=== PATIENT | male | born 2005 | race Two or more races ===

== ENCOUNTER 2024-06-22 13:56 | Emergency (ER) | payer MEDICAID, SELFPAY ==
--- NOTE | ~2024-06-22 | CT_ITS ---
EXAMINATION: CT ABDOMEN AND PELVIS WITH CONTRAST CLINICAL INFORMATION: Vomiting. Lower abdominal pain. Elevated WBC count. COMPARISON: None available. TECHNIQUE: Multidetector volumetric images were obtained from the superior aspect of the liver through the pubic symphysis following administration 85 mL of Omnipaque 350 intravenous contrast. Sagittal and coronal reformatted images were obtained on the technologist's workstation. Oral contrast: No This CT examination was performed using dose optimization techniques as appropriate, variously including the following: *Automated exposure control *Adjustment of mA and/or kV according to patient size (this includes techniques or standardized protocols for targeted exams where dose is matched to indication/reason for exam; i.e. extremities or head) *Use of iterative reconstruction technique DLP: 566 mGy-cm FINDINGS: LUNG BASES: The visualized lung bases are unremarkable. LIVER, GALLBLADDER, AND BILIARY TREE: The liver is normal in size, shape, and attenuation. No focal hepatic lesion or biliary ductal dilatation is present. The gallbladder is unremarkable with no evidence of radiopaque gallstones, gallbladder wall thickening, or obvious pericholecystic inflammatory changes. PANCREAS: Unremarkable. SPLEEN: Unremarkable. ADRENAL GLANDS: Unremarkable. KIDNEYS AND URETERS: The kidneys are normal in size, shape, and attenuation. No hydronephrosis, hydroureter, or calculi seen. No perinephric stranding. BLADDER: Unremarkable. GASTROINTESTINAL TRACT: The small and large bowel are unremarkable. The appendix is unremarkable. ABDOMINAL WALL: No significant hernia is appreciated. LYMPH NODES: Normal. VASCULAR: Unremarkable. PELVIC VISCERA: Unremarkable. OSSEOUS STRUCTURES: Unremarkable. CT/CT abdomen pelvis w IV con IMPRESSION: No significant abnormality. Fleischner guidelines were followed.
[2024-06-22 14:22] VITALS: BP 130/75; PULSE 98; RESP 16; TEMP 36.8; O2SAT 97; BMI 26.7
--- NOTE | 2024-06-22 14:24 | ED_ITS ---
HPI - Nausea/Vomiting/Diarrhea General Chief complaint: Nausea/Vomiting/Diarrhea Stated complaint: Nausea Vomiting Diarrhea Time Seen by Provider: 06/22/24 17:15 Source: patient Mode of arrival: ambulatory Limitations: no limitations History of Present Illness ED Provider: GALINA QUIROZ Narrative: 18 yo male with no PMH here with c/o perumbilical pain n/v/d since yesterday that is improving. He denies fevers, bloody stools, travel, antibiotic use or sick contacts. He denies food exposures. MD elicited complaint: nausea, vomiting, diarrhea and abdominal pain Onset (ago): day(s) (1) Description of vomiting: food contents and watery Associated nausea: Yes Associated abdominal pain: Yes Location of pain: periumbilical Pain consistency: other (much improved) Severity: mild Quality: cramping Exacerbating factors: eating Relieving factors: none Associated symptoms: malaise and nausea/vomiting Related Data Previous Rx's ?Medication ?Instructions ?Recorded ondansetron 4 mg disintegrating 4 mg PO Q8H PRN nausea and 06/22/24 tablet vomiting #20 tabs Allergies Allergy/AdvReac Type Severity Reaction Status Date / Time No Known Allergies Allergy Verified 06/22/24 14:26 Review of Systems 2 Review of Systems: Constitutional : No Weight loss, No Fever, No Chills ENT/Mouth : No sore throat, No Rhinorrhea Eyes: No Swelling, No Redness Cardiovascular : No Chest Pain, No SOB, NoEdema Respiratory : No Cough, No Sputum, No Wheezing Gastrointestinal : Positive Nausea, Positive Vomiting, positive Diarrhea, positive abdominal Pain, No Hematochezia, No Melena Genitourinary : No Dysuria, No Urinary Frequency, No Hematuria, No Urgency Musculoskeletal : No joint pain, No Myalgias, No Joint Swelling Skin : No Skin Lesions, No rash Neuro : No Weakness, No Numbness, No Dizziness, No Headache Psych : No Anxiety/Panic, No Depression All other systems reviewed and are negative. Gastrointestinal: Gastrointestinal: Reports nausea PMFSH Past Medical History Attestation statement: The following information was validated with the patient. Medical History No pertinent past medical history Social History Social History (Updated 06/22/24 @ 17:27 by Mildred Thibodeaux DO) Patient Tobacco Use Status: Never used Tobacco Smoked in Last 30 Days: No Use of substances other than those prescribed or required for medical reasons: No Advance Directives: No Advance Directives Information Provided: Yes Physical Exam 2 Vital Signs: Vital Signs: Last Vital Signs Temp 98.6 F 06/22/24 19:52 Pulse 85 06/22/24 19:52 Resp 17 06/22/24 19:52 BP 137/69 06/22/24 19:52 Pulse Ox 98 06/22/24 19:52 O2 Del Method Room Air 06/22/24 19:52 BMI result Body Mass Index 26.7 Appearance: Alert. Oriented X3. No acute distress. Eyes: Pupils equal, round and reactive to light. ENT: Pharynx normal. Neck: Normal inspection. Neck supple. CVS: Normal heart rate and rhythm. Pulses normal. Respiratory: No respiratory distress. Breath sounds normal. Abdomen: Soft and mild periumbilical ttp Skin: Skin warm and dry. Normal skin color. Normal skin turgor. Extremities: No lower extremity edema. Neuro: Oriented X 3. No motor deficit. No sensory deficit. Course Course Course Narrative: This is an RME: Additional HPI, ROS, PE not included below will be deferred to primary provider. RME assessment and note performed by: Shelby Denise PA-C This is a [id number]-male who presents to the ER with complaints of epigastric abdominal pain, nausea, vomiting, and diarrhea since yesterday. No sick contacts. No bloody or black stool. No appetite. No urinary symptoms. Plan: Labs, UA, further ER eval needed. [id number] - Received phone call from laboratory stating that patient has 12% bands. Advised triage nurse to get patient back margi. 1644 - Patient is still present in the waiting room, blood cultures, lactic also ordered. Reevaluation(s) Reevaluation #1: infection suspected 557pm ceftriaxone ordered Medications Administered Discontinued Medications Generic Name Dose Route Start Last Admin Trade Name Freq PRN Reason Stop Dose Admin Lactated Ringer's 1,000 mls @ 999 mls/hr 06/22/24 17:15 06/22/24 18:46 Lr IV 06/22/24 18:15 999 mls/hr .Q1H1M ONE Infusion Lactated Ringer's 1,000 mls @ 999 mls/hr 06/22/24 17:50 06/22/24 18:46 Lr IV 06/22/24 18:50 999 mls/hr .Q1H1M ONE Administration Ceftriaxone Sodium 1 gm/ 50 mls @ 100 mls/hr 06/22/24 17:57 06/22/24 18:46 Sodium Chloride IV 06/22/24 18:26 Infused ONCE ONE Infusion Iohexol 85 ml 06/22/24 18:01 06/22/24 18:01 Iohexol 350 Mg/Ml 100 Ml Infus..Btl IV 06/22/24 18:02 85 ml ONCE ONE Administration Ketorolac Tromethamine 15 mg 06/22/24 17:15 06/22/24 17:34 Ketorolac Tromethamine 15 Mg/Ml Vial IVPUSH 06/22/24 17:16 15 mg ONCE ONE Administration Ondansetron HCl 4 mg 06/22/24 17:15 06/22/24 17:33 Ondansetron Hcl 4 Mg/2 Ml Vial IVPUSH 06/22/24 17:16 4 mg ONCE ONE Administration Medical Decision Making Medical Decision Making MDM Narrative: 18 yo male with no sig PMH or prior surgeries here with c/o periumbilical pain and n/v/d without fevers or bloody stools symptoms started yesterday but improving at this time labs, CT scan for appendicitis, colitis ordered, IVF and IV toradol/zofran. He has no rebound or guarding. Differential Diagnosis Differential Diagnoses: The differential diagnosis associated with the presentation includes appendicitis, viral syndrome, gastritis Admission/Observation Consideration of admission/observation: Escalation of care including admission/observation considered lactic acid cleared, WBC downtrending, VS have not met SIRS criteria no repeat bands CT scan negative pain resolved, feels much better, stable for DC Lab Data [facility] Lab Attestation statement: I reviewed the patient's lab results. 06/22/24 20:01 06/22/24 14:30 Labs: Lab Results 06/22/24 06/22/24 06/22/24 Range/Units 14:30 17:03 19:55 WBC 18.7 H (4.8-10.8) X10*3/uL RBC 5.14 (4.60-5.80) X10*6/uL Hgb 15.4 (14.0-18.0) g/dl Hct 47.7 (42.0-52.0) % MCV 92.8 (80.0-98.0) fL MCH 30.0 (27.0-33.0) pg MCHC 32.3 (31.0-36.0) g/dl RDW 11.1 (11.0-16.0) % Plt Count 196 (160-400) X10*3/uL MPV 9.8 (9.4-12.4) fL Immature Gran % (Auto) Cancelled Neut % (Auto) Cancelled Lymph % (Auto) Cancelled [place] % (Auto) Cancelled Eos % (Auto) Cancelled Baso % (Auto) Cancelled Lymph # (Auto) Cancelled [place] # (Auto) Cancelled Eos # (Auto) Cancelled Baso # (Auto) Cancelled Abs Immat Gran (auto) Cancelled Absolute Neuts (auto) Cancelled Absolute Nucleated RBC 0.000 (0.0-0.012) X10*3/uL Nucleated RBC % (auto) 0.0 (0.0-0.2) /100WBC Neutrophils % (Manual) 81 H (45-73) % Band Neutrophils % 12 H (3-5) % Lymphocytes % (Manual) 2 L (20-40) % Monocytes % (Manual) 4 (2-11) % Metamyelocytes % 1 % Abs Neuts (Manual) 17.4 H (2.0-8.3) X10*3/uL Lymphocytes # (Manual) 0.4 L (1.2-4.9) X10*3/uL Monocytes # (Manual) 0.7 (0.1-1.2) X10*3/uL Metamyelocytes # 0.2 X10*3/uL Platelet Estimate NORMAL (NORMAL) Plt Morphology Comment NORMAL RBC Morphology NORMAL Smear Tech's Comments MANUAL DIFF Sodium 138 (135-145) mmol/L Potassium 3.8 (3.3-5.1) mmol/L Chloride 100 (96-108) mmol/L Carbon Dioxide 28 (22-29) mmol/L Anion Gap 14 (12-20) BUN 6 L (9-16) mg/dL Creatinine 1.07 (0.5-1.4) mg/dL Estim Creat Clear Calc 120.8 Estimated GFR > 60 Random Glucose 120 H (60-115) mg/dL Lactic Acid 2.3 H* (0.5-2.0) mmol/L Lactic Acid F/U @ 2Hr 1.2 (0.5-2.0) mmol/L Calcium 9.8 (8.4-10.2) mg/dL Magnesium 1.6 (1.6-2.6) mg/dL Total Bilirubin 1.3 H (0.0-1.0) mg/dL Direct Bilirubin 0.4 (0.0-0.5) mg/dL AST 14 (5-37) U/L ALT 16 (0-40) U/L Alkaline Phosphatase 84 (39-117) U/L Total Protein 7.7 (6.5-8.0) g/dL Albumin 4.7 (3.5-5.0) g/dL Lipase 6 L (8-78) U/L Urine Color Dark Yellow Urine Appearance Clear Urine pH 6.5 (5.0-9.0) Ur Specific [place] 1.025 (1.005-1.025) Urine Protein 30 (1+) H (Neg-Trace) mg/dL Urine Glucose (UA) Negative (Negative) mg/dL Urine Ketones 15 (Negative) mg/dL Urine Blood Small (1+) H (Negative) Urine Nitrite Negative (Negative) Ur Leukocyte Esterase Trace H (Negative) Urine RBC 0-2 (0-2) /HPF Urine WBC 0-5 (0-5) /HPF Ur Squamous Epith Cells 3-5 (0-2) /HPF Urine Bacteria None Seen (None Seen) Hyaline Casts 0-2 (0-2) /LPF Urine Opiates Screen Not Detected (Not Detect) Ur Buprenorphine Scrn Not Detected (Not Detect) ng/mL Ur Oxycodone Screen Not Detected (Not Detect) ng/mL Urine Methadone Screen Not Detected (Not Detect) ng/mL Urine Fentanyl Screen Not Detected (Not Detect) Ur Barbiturates Screen Not Detected (Not Detect) Ur Phencyclidine Scrn Not Detected (Not Detect) Ur Amphetamines Screen Not Detected (Not Detect) U Benzodiazepines Scrn Not Detected (Not Detect) Urine Cocaine Screen Not Detected (Not Detect) U Marijuana (THC) Screen POSITIVE H (Not Detect) Influenza Type A (PCR) NEGATIVE (Negative) Influenza Type B (PCR) NEGATIVE (Negative) RSV RNA Qual (PCR) NEGATIVE (Negative) SARS-CoV-2 RNA (RT-PCR) NEGATIVE (Negative) 06/22/24 Range/Units 20:01 WBC 15.0 H (4.8-10.8) X10*3/uL RBC 4.76 (4.60-5.80) X10*6/uL Hgb 14.3 (14.0-18.0) g/dl Hct 43.7 (42.0-52.0) % MCV 91.8 (80.0-98.0) fL MCH 30.0 (27.0-33.0) pg MCHC 32.7 (31.0-36.0) g/dl RDW 11.0 (11.0-16.0) % Plt Count 183 (160-400) X10*3/uL MPV 9.9 (9.4-12.4) fL Immature Gran % (Auto) 0.4 Neut % (Auto) 81.2 H Lymph % (Auto) 7.4 L [place] % (Auto) 10.6 Eos % (Auto) 0.1 Baso % (Auto) 0.3 Lymph # (Auto) 1.1 L [place] # (Auto) 1.6 H Eos # (Auto) 0.0 Baso # (Auto) 0.0 Abs Immat Gran (auto) 0.06 H Absolute Neuts (auto) 12.2 H Absolute Nucleated RBC 0.000 (0.0-0.012) X10*3/uL Nucleated RBC % (auto) 0.0 (0.0-0.2) /100WBC Neutrophils % (Manual) (45-73) % Band Neutrophils % (3-5) % Lymphocytes % (Manual) (20-40) % Monocytes % (Manual) (2-11) % Metamyelocytes % % Abs Neuts (Manual) (2.0-8.3) X10*3/uL Lymphocytes # (Manual) (1.2-4.9) X10*3/uL Monocytes # (Manual) (0.1-1.2) X10*3/uL Metamyelocytes # X10*3/uL Platelet Estimate (NORMAL) Plt Morphology Comment RBC Morphology Smear Tech's Comments Sodium (135-145) mmol/L Potassium (3.3-5.1) mmol/L Chloride (96-108) mmol/L Carbon Dioxide (22-29) mmol/L Anion Gap (12-20) BUN (9-16) mg/dL Creatinine (0.5-1.4) mg/dL Estim Creat Clear Calc Estimated GFR Random Glucose (60-115) mg/dL Lactic Acid (0.5-2.0) mmol/L Lactic Acid F/U @ 2Hr (0.5-2.0) mmol/L Calcium (8.4-10.2) mg/dL Magnesium (1.6-2.6) mg/dL Total Bilirubin (0.0-1.0) mg/dL Direct Bilirubin (0.0-0.5) mg/dL AST (5-37) U/L ALT (0-40) U/L Alkaline Phosphatase (39-117) U/L Total Protein (6.5-8.0) g/dL Albumin (3.5-5.0) g/dL Lipase (8-78) U/L Urine Color Urine Appearance Urine pH (5.0-9.0) Ur Specific [place] (1.005-1.025) Urine Protein (Neg-Trace) mg/dL Urine Glucose (UA) (Negative) mg/dL Urine Ketones (Negative) mg/dL Urine Blood (Negative) Urine Nitrite (Negative) Ur Leukocyte Esterase (Negative) Urine RBC (0-2) /HPF Urine WBC (0-5) /HPF Ur Squamous Epith Cells (0-2) /HPF Urine Bacteria (None Seen) Hyaline Casts (0-2) /LPF Urine Opiates Screen (Not Detect) Ur Buprenorphine Scrn (Not Detect) ng/mL Ur Oxycodone Screen (Not Detect) ng/mL Urine Methadone Screen (Not Detect) ng/mL Urine Fentanyl Screen (Not Detect) Ur Barbiturates Screen (Not Detect) Ur Phencyclidine Scrn (Not Detect) Ur Amphetamines Screen (Not Detect) U Benzodiazepines Scrn (Not Detect) Urine Cocaine Screen (Not Detect) U Marijuana (THC) Screen (Not Detect) Influenza Type A (PCR) (Negative) Influenza Type B (PCR) (Negative) RSV RNA Qual (PCR) (Negative) SARS-CoV-2 RNA (RT-PCR) (Negative) Independent Interpretation I performed an independent interpretation of an: CT Scan (normal ) Radiology Impression Discussion of test interpretation with radiology: I have reviewed the radiologist's reading. Prescription Management I considered prescription management with: Other Critical Care Time Critical Care Time Critical Care Time: Yes Total Critical Care Time: 45 Attestation: 2L of IVF, repeat labs, repeat assessments I attest to this time spent taking care of the patient Discharge Plan Discharge Clinical Impression: Acute dehydration, Acute viral syndrome Patient Disposition: Home, Self-Care Instructions: Dehydration (ED), Viral Syndrome (ED) Additional Instructions: return for worsening pain, fevers, inability to eat or drink or any other concerns. Prescriptions: New ondansetron 4 mg tablet,disintegrating 4 mg PO Q8H PRN (Reason: nausea and vomiting) Qty: 20 0RF Stand Alone Forms: Work/School Release Print Language: [place]an
[2024-06-22 14:37] LABS: Hematocrit 47.7 % (42.0-52.0); Hemoglobin 15.4 g/dl (14.0-18.0); Mean Corpuscular HGB Conc 32.3 g/dl (31.0-36.0); Mean Corpuscular Volume 92.8 fL (80.0-98.0); Mean Platelet Volume 9.8 fL (9.4-12.4); Platelet Count 196 X10*3/uL (160-400); Red Blood Count 5.14 X10*6/uL (4.60-5.80); Red Cell Distribution Width 11.1 % (11.0-16.0); White Blood Count 18.7 X10*3/uL (4.8-10.8)
[2024-06-22 14:54] LABS: Alanine Aminotransferase 16 U/L (0-40); Albumin Level 4.7 g/dL (3.5-5.0); Alkaline Phosphatase 84 U/L (39-117); Anion Gap 14 (12-20); Aspartate Amino Transferase 14 U/L (5-37); Bilirubin Direct 0.4 mg/dL (0.0-0.5); Bilirubin Total 1.3 mg/dL (0.0-1.0); Blood Urea Nitrogen 6 mg/dL (9-16); Calcium 9.8 mg/dL (8.4-10.2); Carbon Dioxide 28 mmol/L (22-29); Chloride 100 mmol/L (96-108); Creatinine Clr Calc Pharmacy 120.8; Estimated Glomerular Filt Rate > 60; Glucose Random 120 mg/dL (60-115); Lipase 6 U/L (8-78); Magnesium 1.6 mg/dL (1.6-2.6); Potassium 3.8 mmol/L (3.3-5.1); Sodium 138 mmol/L (135-145); Total Protein 7.7 g/dL (6.5-8.0)
[2024-06-22 14:55] LABS: SLIDE REVIEW MANUAL DIFF
[2024-06-22 14:58] LABS: Neutrophils Percent Manual 81 % (45-73)
[2024-06-22 15:01] LABS: Band Neutrophils Percent 12 % (3-5); Lymphocytes Absolute Manual 0.4 X10*3/uL (1.2-4.9); Lymphocytes Percent Manual 2 % (20-40); Metamyelocytes Absolute 0.2 X10*3/uL; Metamyelocytes Percent 1 %; Monocytes Absolute Manual 0.7 X10*3/uL (0.1-1.2); Monocytes Percent Manual 4 % (2-11); Neutrophils Absolute Manual 17.4 X10*3/uL (2.0-8.3); Platelet Estimate NORMAL (NORMAL); Platelet Morphology Comment NORMAL; RBC Morphology NORMAL
[2024-06-22 15:18] LABS: Influenza A PCR NEGATIVE (Negative); Influenza B PCR NEGATIVE (Negative); Resp Syncy Virus RNA Qual PCR NEGATIVE (Negative); SARS COV2 PCR INHOUSE NEGATIVE (Negative)
--- NOTE | 2024-06-22 17:12 | MHC.EDTECH ---
Patient lactic acid and both sets of blood culture drawn from different sites ,Urine sample collected all sent to lab .
[2024-06-22 17:21] VITALS: BP 144/91; PULSE 93; RESP 18; TEMP 36.8; O2SAT 97
[2024-06-22 17:27] LABS: Appearance Urine Clear; Color Urine Dark Yellow; Glucose Urine UA Negative (Negative); Leukocyte Esterase Urine Trace (Negative); Nitrite Urine Negative (Negative); PH 6.5 (5.0-9.0); Specific Gravity - Urine 1.025 (1.005-1.025); UMIC TRIGGER UACC YES; Urine Blood Small (1+) (Negative); Urine Ketones 15 mg/dL (Negative); Urine Protein 30 (1+) mg/dL (Neg-Trace)
[2024-06-22] MEDS: ondansetron HCL 4 MG/2 ML VIAL IVPUSH (17:33)
[2024-06-22] MEDS: Ketorolac Tromethamine 15 MG/ML VIAL IVPUSH (17:34)
[2024-06-22] MEDS: Lactated Ringers 1,000 ML 999 ML IV ×2 (17:35→18:46)
[2024-06-22 17:43] LABS: Bacteria Urine None Seen (None Seen); Hyaline Casts Urine 0-2 /LPF (0-2); RBC Urine 0-2 /HPF (0-2); WBC Urine 0-5 /HPF (0-5)
[2024-06-22 17:59] LABS: Amphetamine Screen Urine Not Detected (Not Detect); Barbiturates, Urine Not Detected (Not Detect); Benzodiazepines Screen Urine Not Detected (Not Detect); Buprenorphine Scr Not Detected (Not Detect); Cannabinoid Screen Urine POSITIVE (Not Detect); Cocaine Screen Urine Not Detected (Not Detect); Fentanyl, urine Not Detected (Not Detect); Lactic Acid 2.3 mmol/L (0.5-2.0); Methadone Screen, Urine Not Detected (Not Detect); Opiate Screen Urine Not Detected (Not Detect); Oxycodone Screen Urine Not Detected (Not Detect); Phencyclidine Screen Urine Not Detected (Not Detect)
[2024-06-22] MEDS: iohexoL 350 MG/ML 100 ML INFUS..BTL 85 ML IV (18:01)
[2024-06-22] MEDS: cefTRIAXone sodium 1 GM in 0.9 % Sodium Chloride 50 ML IV (18:20)
[2024-06-22 19:13] LABS: Reflex Lactate? Lactic Acid Added
[2024-06-22 19:52] VITALS: BP 137/69; PULSE 85; RESP 17; TEMP 37; O2SAT 98
[2024-06-22 20:15] LABS: Basophils Percent Auto 0.3 % (0-2); Eosinophils Percent Auto 0.1 % (0-4); Hematocrit 43.7 % (42.0-52.0); Hemoglobin 14.3 g/dl (14.0-18.0); Imm Gran Abs Auto 0.06 X10*3/uL (0.00-0.03); Imm Gran Pct Auto 0.4 % (0.0-0.4); Lymphocytes Absolute Auto 1.1 X10*3/uL (1.2-4.9); Lymphocytes Percent Auto 7.4 % (20-40); MANUAL DIFF FLAG SCAN; Mean Corpuscular HGB Conc 32.7 g/dl (31.0-36.0); Mean Corpuscular Volume 91.8 fL (80.0-98.0); Mean Platelet Volume 9.9 fL (9.4-12.4); Monocytes Absolute Auto 1.6 X10*3/uL (0.1-1.2); Monocytes Percent Auto 10.6 % (2-11); Neutrophils Absolute Auto 12.2 x10*3/uL (2.0-8.3); Neutrophils Percent Auto 81.2 % (45-73); Platelet Count 183 X10*3/uL (160-400); Red Blood Count 4.76 X10*6/uL (4.60-5.80); SCAN SMEAR FLAG 1
[2024-06-22 20:18] LABS: ~Lactic Acid-LAB USE ONLY 1.2 mmol/L (0.5-2.0)
[2024-06-22 21:17] VITALS: BP 130/72; PULSE 78; RESP 16; TEMP 36.9; O2SAT 98
== END 2024-06-22 21:18 | disposition home or self-care (01) ==
PROVIDERS: Physician Assistant Medical; Emergency Provider Emergency Medicine
DX: E86.0 Dehydration (principal); B34.9 Viral infection, unspecified; R11.2 Nausea with vomiting, unspecified; R53.81 Other malaise; R10.33 Periumbilical pain; Z79.899 Other long term (current) drug therapy; Z03.818 Encounter for observation for suspected exposure to other biological agents ruled out
CPT/HCPCS: 0241U; 36415; 74177; 80048; 80076; 80307; 81001; 83605; 83690; 83735; 85007; 85025; 85027; 87040; 96361; 96374; 96375; 99285; J0696; J1885; J2405; J7120; Q9967